=== PATIENT | male | born 1965 | race Caucasian/White ===

== ENCOUNTER 2017-12-30 17:29 | Emergency (ER) | payer OTHER ==
[2017-12-30] MEDS: SOD CHLORIDE 0.9% 1,000 ML IV (18:07)
[2017-12-30] MEDS: ONDANSETRON 4 MG INJ IV (18:07)
[2017-12-30 18:46] LABS: ADD MAN DIFF? NO
[2017-12-30 18:48] LABS: WHITE BLOOD COUNT 7.4 10^3/ul (4.8-10.8)
[2017-12-30 18:48] LABS: BASOPHILS % 0.5 % (0.0-2.0); EOSINOPHILS % 0.1 % (0.0-7.0); HEMATOCRIT 39.3 % (42.0-52.0); LYMPHOCYTES # 2.3 10^3/ul (0.8-2.9); LYMPHOCYTES % 30.7 % (15.0-51.0); MEAN CORPUSCULAR HEMOGLOBIN 29.4 pg (29.0-33.0); MEAN CORPUSCULAR HGB CONC 35.6 g/dl (32.0-37.0); MEAN CORPUSCULAR VOLUME 82.4 fl (82.0-101.0); MEAN PLATELET VOLUME 9.1 fl (7.4-10.4); MONOCYTE # 0.7 10^3/ul (0.3-0.9); MONOCYTES % 9.4 % (0.0-11.0); NEUTROPHIL # 4.3 10^3/ul (1.6-7.5); NEUTROPHILS % 58.3 % (39.0-77.0); PLATELET COUNT 302 10^3/UL (140-415); RED BLOOD COUNT 4.77 10^6/ul (4.70-6.10); RED CELL DISTRIBUTION WIDTH 13.2 % (11.5-14.5)
[2017-12-30] MEDS: ENALAPRILAT 1.25 MG INJ IV (19:08)
[2017-12-30] MEDS: LORAZEPAM 0.5 MG TAB PO (19:09)
[2017-12-30 19:19] LABS: ALANINE AMINOTRANSFERASE 42 IU/L (13-69); ALBUMIN 3.9 g/dl (3.3-4.9); ALBUMIN/GLOBULIN RATIO 1.25; ALKALINE PHOSPHATASE 85 IU/L (42-121); ANION GAP 15 (8-16); ASPARTATE AMINO TRANSFERASE 24 IU/L (15-46); BILIRUBIN,INDIRECT 0.1 mg/dl (0-1.1); BILIRUBIN,TOTAL 0.1 mg/dl (0.2-1.3); BLOOD UREA NITROGEN 9 mg/dl (7-20); CALCIUM 8.5 mg/dl (8.4-10.2); CARBON DIOXIDE 28 mmol/L (21-31); CHLORIDE 99 mmol/L (97-110); CREATININE 0.69 mg/dl (0.61-1.24); GLUCOSE 389 mg/dl (70-220); LIPASE 132 U/L (23-300); POTASSIUM 3.6 mmol/L (3.5-5.1); SODIUM 138 mmol/L (135-144); TROPONIN-I < 0.012 ng/ml (0.00-0.12)
[2017-12-30] MEDS: INSULIN LISPRO 100 UNIT/ML VIAL SC (19:54)
== END 2017-12-30 20:37 | disposition home or self-care (01) ==
LOC: E/R 17:29
DX: R42 Dizziness and giddiness (principal); I10 Essential (primary) hypertension; F43.20 Adjustment disorder, unspecified; E11.65 Type 2 diabetes mellitus with hyperglycemia; Z79.4 Long term (current) use of insulin; Z79.82 Long term (current) use of aspirin
CPT/HCPCS: 36415; 70450; 80053; 82962; 83690; 84484; 85025; 93005; 96372; 96374; 96375; 99285-25